=== PATIENT | male | born 1980 | race Caucasian/White ===

== ENCOUNTER 2016-12-09 07:11 | Emergency (ER) | payer SELFPAY | END 2016-12-09 08:19 | disposition home or self-care (01) | LOC: D.ER 07:11 | DX: S05.01XA Injury of conjunctiva and corneal abrasion without foreign body, right eye, initial encounter (principal); X58.XXXA Exposure to other specified factors, initial encounter; Y93.89 Activity, other specified; Y92.89 Other specified places as the place of occurrence of the external cause; H54.42 Blindness, left eye, normal vision right eye ==